=== PATIENT | male | born 1980 | race Caucasian/White ===

== ENCOUNTER 2018-06-15 12:50 | Observation (INO) ==
--- NOTE | 2018-06-15 13:09 | ERNOTE ---
Abdominal HPI - Narrative Date of Service: 06/15/18 - General Chief Complaint: Abdominal Pain Time Seen by Provider: 06/15/18 13:08 Source: patient Exam Limitations: no limitations - Immun/Allergies/Home Medications Immunizatons: IMMUNIZATION HX Immunizations Up to Date Yes History of Influenza Vaccine No Hx Pneumococcal Vaccination No Allergies/Adverse Reactions: Allergies No Known Allergies Allergy (Verified 11/28/17 13:48) Home Medications: HOME MEDICATIONS Cetirizine HCl [Zyrtec] 10 mg PO DAILY 06/09/13 [Last Taken Unknown] Multivitamins [Multivitamin Jessica] 1 cap PO DAILY 06/09/13 [Last Taken Unknown] cholecalciferol (vitamin D3) 5,000 unit capsule 5,000 unit PO DAILY 11/28/17 [Last Taken Unknown] omeprazole 40 mg capsule,delayed release 40 mg PO DAILY #90 cap 11/28/17 [Last Taken Unknown] vitamin B complex tablet 1 tab PO DAILY 11/28/17 [Last Taken Unknown] - Pain Score Pain Score #1 Pain Score: 7 Abdominal Pain Onset Location: RLQ Pain Radiation: no radiation - History of Present Illness Narrative: The patient is a 38 year old male who presents for RLQ abdominal pain which has been present since yesterday evening. There are associated symptoms of nausea with vomiting, chills and fatigue. The patient reports RLQ pain, 7/10. There are no alleviating factors. There are aggravating factors of activity. Previous treatments have included: none. The past medical history includes: GERD and HLD. The social history is positive for current tobacco use. The patient has had no ill contacts. Patient states pain began to RLQ with radiation to right flank yesterday, today pain localized to RLQ. Patient reports nausea with vomiting that began this am, patient denies blood in emesis. Patient reports normal BM this am without containing blood. Review of Systems - Review of Systems Constitutional: Present: fever, chills, fatigue EYE: Present: no symptoms reported ENT: Present: no symptoms reported. Absent: ear pain, nasal drainage, sore throat Respiratory: Present: no symptoms reported. Absent: shortness of breath, cough Cardiology: Present: no symptoms reported. Absent: chest pain Gastrointestinal/Abdominal: Present: nausea, vomiting, abdominal pain, eating less, drinking less. Absent: diarrhea Genitourinary: Present: no symptoms reported, other - denies scrotal pain. Absent: frequency, dysuria, hematuria, decreased urinary output Musculoskeletal: Present: no symptoms reported. Absent: back pain Skin: Present: no symptoms reported. 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 Recheck 3-5 yrs. History of esophagogastroduodenoscopy (EGD) Onset Date: 2013 neg clotest. Mod chemical irritation Family History: Family History (Updated 11/13/17 @ 12:35 by Samantha Perry RN) Mother Hypertension Grandfather Diabetes Grandmother Diabetes Father , age 48 Lymphoma Uncle Diabetes Aunt Diabetes Social History: Preferred Language Citizen Of [place] Do you have any jainism or No cultural preference? Smoking Status Current every day smoker Have you smoked in the past 12 No months Do you dip or chew tobacco Yes Abuse History No History of abuse Psych History No pertinent hx Alcohol Use occasionally Drug Use none (Last Updated 12/17/17 @ 16:39 by Orlando Mora DO) No Social History Section defined Physical Exam - Physical Exam General Appearance: Present: wd/wn, alert, moderate distress Head Exam: Present: normal inspection Eye Exam: Normal inspection: bilateral Ears, Nose, Throat: Present: normal ENT inspection, normal pharynx Neck: Present: normal inspection Respiratory: Present: no respiratory distress, normal breath sounds, no accessory muscle use, lungs clear Cardiovascular/Chest: Present: no murmur, tachycardia Gastrointestinal/Abdominal: Present: normal bowel sounds, nondistended, soft, no organomegaly, tenderness - RLQ, guarding, rebound, McBurney sign, Obturator sign, Psoas sign. Absent: De Souza sign, mass Extremity Exam: Present: no edema Neurological Exam: Present: alert, oriented, normal mood/affect Skin Exam: Present: normal color, warm/dry Progress - Date and Time Seen: Date and Time: 06/15/18 16:20 Discussed case with , will present to evaluate patient, does not want OR crew notified at this time. 06/15/18 16:40 present to evaluate patient. 06/15/18 16:57 Plan for patient to go to OR. - Results and Orders Patient's Lab Results:: I have reviewed the patient's lab results. - Vital Signs Patient's Vital Signs:: I have reviewed the patient's vital signs. Vital Signs: Vital Signs 06/15/18 13:02 Temperature 37.6 C Pulse Rate 125 H Respiratory Rate 18 Blood Pressure 128/48 O2 Sat by Pulse Oximetry 100 - X-Ray X-Ray #1 X-Ray: abdomen Interpretation: Reviewed by me X-ray Comments: Normal bowel gas pattern, mild retained stool. - CT/Ultrasound CT/Ultrasound Narrative: IMPRESSION: 1. ACUTE APPENDICITIS. 2. NONSPECIFIC HEPATOMEGALY WITH FATTY INFILTRATION OF THE LIVER. FINDINGS TELEPHONED TO THE EMERGENCY ROOM PERSONNEL AT 1615 HOURS. Electronically signed by Hal Ceballos M.D. - Progress/Reassessment Chief Complaint: Abdominal Pain Departure Clinical Impression: Appendicitis, acute Qualifiers: Acute appendicitis type: with localized peritonitis Appendicitis gangrene presence: without gangrene Appendicitis perforation presence: without perforation Appendicitis abscess presence: without abscess Qualified Code(s): K35.30 - Acute appendicitis with localized peritonitis, without perforation or gangrene - Departure Disposition: Still a patient Condition: Good
[2018-06-15] MEDS ORDERED: ONDANSETRON HCL/PF 2 MG/ML VIAL IV ONE (13:13)
[2018-06-15] MEDS ORDERED: KETOROLAC TROMETHAMINE 30 MG/ML VIAL IV ONE (13:13)
[2018-06-15] MEDS ORDERED: NORMAL SALINE 500 ML IV ONE (13:14)
[2018-06-15 13:34] LABS: Hematocrit 44.3 % (42.0-52.0); Hemoglobin 15.2 gm/dL (13.5-18.0); Mean Cell Volume 87.2 fl (78-100); Mean Corpuscular Hemoglobin 29.9 pg (27-31); Mean Corpuscular Hgb Conc 34.3 g/dl (32-36); Mean Platelet Volume 9.5 fl (8-11.3); Neutrophil # 14.6 K/mm3 (1.3-6.0); Neutrophil % 93.5 % (42-75.0); Platelet Count 266 K/mm3 (150-450); Red Blood Count 5.08 M/mm3 (4.7-6.0); Red Cell Distribution Width 12.9 % (11.5-14.0); White Blood Count 15.6 K/mm3 (4.0-10.5)
[2018-06-15] MEDS ORDERED: DIATRIZOATE MEGLUMINE, SODIUM 30 ML BTL PO ONE (13:41)
[2018-06-15] MEDS ORDERED: MORPHINE SULFATE 4 MG/ML SYRG ONE (13:56)
[2018-06-15] MEDS ORDERED: MORPHINE SULFATE 4 MG/ML SYRG IV ONE (13:56)
[2018-06-15 13:57] LABS: Albumin * 4.5 gm/dl (3.4-5.0); Anion Gap 18.5 mmol/L (6.8-13.8); BUN/Creatinine Ratio 15.3 (9.0-21.6); Bilirubin, Total 0.7 mg/dL (0.0-1.1); Ca. Corrected For Albumin 8.9 mg/dL (8.4-10.2); Calcium * 9.6 mg/dL (7.9-10.9); Carbon Dioxide 24.6 mmol/L (24-32.6); Potassium 4.1 mmol/L (3.4-4.6); Total Protein 8.1 gm/dL (6.2-8.2)
[2018-06-15] MEDS ORDERED: CEFEPIME HCL 1 GM/100 ML BAG IV ONE (16:49)
--- NOTE | 2018-06-15 16:58 | ANES ---
Anesthesia Pre Procedure Eval Vitals/Labs: Last Vital Signs Temp 37.2 C 06/15/18 14:34 Pulse 100 06/15/18 14:34 Resp 14 06/15/18 14:34 BP 145/87 H 06/15/18 14:34 Pulse Ox 95 06/15/18 14:34 HOME MEDICATIONS Cetirizine HCl [Zyrtec] 10 mg PO DAILY 06/09/13 [Last Taken Unknown] Multivitamins [Multivitamin Jessica] 1 cap PO DAILY 06/09/13 [Last Taken Unknown] cholecalciferol (vitamin D3) 5,000 unit capsule 5,000 unit PO DAILY 11/28/17 [Last Taken Unknown] omeprazole 40 mg capsule,delayed release 40 mg PO DAILY #90 cap 11/28/17 [Last Taken Unknown] vitamin B complex tablet 1 tab PO DAILY 11/28/17 [Last Taken Unknown] Allergies/Adverse Reactions: Allergies Allergy/AdvReac Type Severity Reaction Status Date / Time No Known Allergies Allergy Verified 11/28/17 13:48 - Planned Procedure Planned Procedure: RLQ pain/vomiting Medication List Reviewed:: Yes Allergies Verified: Yes Medical History (Updated 06/15/18 @ 16:47 by ZITA Cazares) GERD (gastroesophageal reflux disease) Onset Date: Unknown Hematuria Onset Date: Unknown Influenza vaccination declined Onset Date: ~11/28/17 Tobacco abuse Onset Date: Unknown [place] teeth removed Onset Date: 2005 hyperlipidemia Onset Date: Unknown Surgical History (Updated 11/13/17 @ 12:28 by Samantha Perry RN) 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 Recheck 3-5 yrs. History of esophagogastroduodenoscopy (EGD) Onset Date: 2013 neg clotest. Mod chemical irritation Family History (Updated 11/13/17 @ 12:35 by Samantha Perry RN) Mother Hypertension Grandfather Diabetes Grandmother Diabetes Father , age 48 Lymphoma Uncle Diabetes Aunt Diabetes - Family Anesthesia History Family History:: no untoward family reactions to anesthesia, no familial bleeding tendencies, no family history of clotting disorders, no family history of premature - Airway/Neck/Teeth Within Normal Limits:: Yes Teeth Condition: intact Mallampatti Score: 3 Thyromental (T-M) distance: > 6 cm Mandibulo Hyoid distance: > 3 cm - Respiratory Respiratory Physical: lungs clear Smoking Status: Light tobacco smoker - chews 1-2 cans per day Discussed smoking cessation including day of surgery: Yes - one this am Sleep Apnea currently treated: No Sleep Apnea by current assessment: Yes - possible by anatomy Discussed Risks/Treatment of JOSSELINE: No - Cardiovascular Tolerate Activity: Fair Heart Sounds: S1 & S2, Regular - Anesthesia Assessment and Plan ASA Class: PS, II, E Anesthesia Type Plan: General ET
--- NOTE | 2018-06-15 17:02 | HP ---
Chief Complaint - Chief Complaint Date of Service: 06/15/18 Time of Service: 16:56 Chief Complaint: acute appy History of Present Illness: Nitish is a pleasant 38 year old male, who developed abdominal pain yesterday. This has worsened and he has had N/V. He has not had pain like this before and is generally healthy. He works for the [employer]. Medical History (Updated 06/15/18 @ 16:47 by ZITA Cazares) GERD (gastroesophageal reflux disease) Onset Date: Unknown Hematuria Onset Date: Unknown Influenza vaccination declined Onset Date: ~11/28/17 Tobacco abuse Onset Date: Unknown [place] teeth removed Onset Date: 2005 hyperlipidemia Onset Date: Unknown Surgical History: Surgical History (Updated 11/13/17 @ 12:28 by Samantha Perry RN) History of colonoscopy Onset Date: 2013. juvenile adenoma. Recheck 3-5 yrs. History of esophagogastroduodenoscopy (EGD) Onset Date: 2013 neg clotest. Mod chemical irritation Family History: Family History (Updated 11/13/17 @ 12:35 by Samantha Perry RN) Mother Hypertension Grandfather Diabetes Grandmother Diabetes Father , age 48 Lymphoma Uncle Diabetes Aunt Diabetes Social History: Preferred Language [place] Do you have any christian or No cultural preference? Smoking Status Current every day smoker Have you smoked in the past 12 No months Do you dip or chew tobacco Yes Abuse History No History of abuse Psych History No pertinent hx Alcohol Use occasionally Drug Use none (Last Updated 12/17/17 @ 16:39 by Orlando Mora DO) No Social History Section defined Review Of Systems (GEN) - Review of Systems Generalized/Overall Review: Present: No Symptoms Reported EENTM: Present: No Symptoms Reported Respiratory: Present: No Symptoms Reported Cardiac: Present: No Symptoms Reported Abdominal: Present: No Symptoms Reported Genitourinary: Present: No Symptoms Reported Musculoskeletal: Present: No Symptoms Reported Neurological: Present: No Symptoms Reported Skin: Present: No Symptoms Reported Endocrine: Present: No Symptoms Reported Immunizations: IMMUNIZATION HX Immunizations Up to Date Yes History of Influenza Vaccine No Hx Pneumococcal Vaccination No Allergies/Adverse Reactions: Allergies Allergy/AdvReac Type Severity Reaction Status Date / Time No Known Allergies Allergy Verified 11/28/17 13:48 Home Medications: HOME MEDICATIONS Cetirizine HCl [Zyrtec] 10 mg PO DAILY 06/09/13 [Last Taken Unknown] Multivitamins [Multivitamin Jessica] 1 cap PO DAILY 06/09/13 [Last Taken Unknown] cholecalciferol (vitamin D3) 5,000 unit capsule 5,000 unit PO DAILY 11/28/17 [Last Taken Unknown] omeprazole 40 mg capsule,delayed release 40 mg PO DAILY #90 cap 11/28/17 [Last Taken Unknown] vitamin B complex tablet 1 tab PO DAILY 11/28/17 [Last Taken Unknown] Exam - Exam Vital Signs: Vital Signs - Last Taken Temp 37.2 C 06/15/18 14:34 Pulse 100 06/15/18 14:34 Resp 14 06/15/18 14:34 BP 145/87 H 06/15/18 14:34 Pulse Ox 95 06/15/18 14:34 Constitutional: Present: Alert, Oriented x3 Neck: Present: full range of motion Back Exam: Present: normal inspection Respiratory: Present: lungs clear, normal breath sounds Cardiovascular/Chest: Present: regular rate, rhythm Abdomen: Present: Normal bowel sounds, tender /Rectal: Present: Exam deferred Extremity: Present: normal range of motion Skin Exam: Present: normal color Neurologic: Present: sales assistant entertainment and media II-XII nml as tested Appearance: Present: appropriate appearance Eye contact: Present: cooperative, good eye contact Thoughts: Present: normal thought pattern Diagnostic Studies: Abnormal Lab Results 06/15/18 06/15/18 Range/Units 13:28 13:28 WBC 15.6 H (4.0-10.5) K/mm3 Immature Gran # (Auto) 0.05 H (0.000-0.0310) K/mm3 Neutrophils % 93.5 H (42-75.0) % Lymphocytes % 4.4 L (20-51) % Neutrophils # 14.6 H (1.3-6.0) K/mm3 Lymphocytes # 0.69 L (1.5-3.5) k/mm3 Anion Gap 18.5 H (6.8-13.8) mmol/L Random Glucose 111 H (70-110) mg/dL Laboratory Results WBC 15.6 K/mm3 (4.0-10.5) H 06/15/18 13:28 RBC 5.08 M/mm3 (4.7-6.0) 06/15/18 13:28 Hgb 15.2 gm/dL (13.5-18.0) 06/15/18 13:28 Hct 44.3 % (42.0-52.0) 06/15/18 13:28 MCV 87.2 fl (78-100) 06/15/18 13:28 MCH 29.9 pg (27-31) 06/15/18 13:28 MCHC 34.3 g/dl (32-36) 06/15/18 13:28 RDW 12.9 % (11.5-14.0) 06/15/18 13:28 Plt Count 266 K/mm3 (150-450) 06/15/18 13:28 MPV 9.5 fl (8-11.3) 06/15/18 13:28 Immature Gran % (Auto) 0.30 % (0.001-0.429) 06/15/18 13:28 Immature Gran # (Auto) 0.05 K/mm3 (0.000-0.0310) H 06/15/18 13:28 93.5 % (42-75.0) H 06/15/18 13:28 4.4 % (20-51) L 06/15/18 13:28 1.5 % (0.0-9) 06/15/18 13:28 0.1 % (0.0-3.0) 06/15/18 13:28 0.2 % (0.0-1.0) 06/15/18 13:28 Nucleated RBC % 0.0 k/mm3 (0-1) 06/15/18 13:28 14.6 K/mm3 (1.3-6.0) H 06/15/18 13:28 0.69 k/mm3 (1.5-3.5) L 06/15/18 13:28 0.2 k/mm3 (0.0-1.0) 06/15/18 13:28 0.0 k/mm3 (0.0-0.7) 06/15/18 13:28 Absolute Basophils 0.0 k/mm3 (0.0-0.1) 06/15/18 13:28 Sodium 140 mmol/L (132-142) 06/15/18 13:28 140 mmol/L (130-142) 06/15/18 13:28 Potassium 4.1 mmol/L (3.4-4.6) 06/15/18 13:28 Chloride 101 mmol/L (97-106) 06/15/18 13:28 Carbon Dioxide 24.6 mmol/L (24-32.6) 06/15/18 13:28 18.5 mmol/L (6.8-13.8) H 06/15/18 13:28 BUN 17 mg/dL (6-23) 06/15/18 13:28 1.11 mg/dL (0.4-1.4) 06/15/18 13:28 Est GFR (Non-Af Amer) 79 mL/min (60-130) 06/15/18 13:28 15.3 (9.0-21.6) 06/15/18 13:28 111 mg/dL (70-110) H 06/15/18 13:28 Calcium 9.6 mg/dL (7.9-10.9) 06/15/18 13:28 Calcium Adj for Albumin 8.9 mg/dL (8.4-10.2) 06/15/18 13:28 0.7 mg/dL (0.0-1.1) 06/15/18 13:28 AST 31 U/L (0-48) 06/15/18 13:28 ALT 67 U/L (19-67) 06/15/18 13:28 109 U/L (50-170) 06/15/18 13:28 8.1 gm/dL (6.2-8.2) 06/15/18 13:28 4.5 gm/dl (3.4-5.0) 06/15/18 13:28 Amylase 46 U/L (25-115) 06/15/18 13:28 97 U/L (73-393) 06/15/18 13:28 Assessment/Plan - Assessment/Plan (1) Appendicitis, acute Problem: Acute Qualifiers: Acute appendicitis type: with localized peritonitis Appendicitis gangrene presence: without gangrene Appendicitis perforation presence: without perforation Appendicitis abscess presence: without abscess Qualified Code(s): K35.30 - Acute appendicitis with localized peritonitis, without perforation or gangrene Plan - Plan Plan: We will plan to go to the OR for lap possible open appendectomy. Risks and benefits were discussed with the patient. He voices understanding and would like to proceed. Antibiotics were given in the ER.
[2018-06-15 17:19] LABS: Urine Appearance Clear (CLEAR); Urine Bilirubin Negative (NEGATIVE); Urine Color Yellow
[2018-06-15 17:20] LABS: Urine Bacteria None Seen; Urine Blood 5 /ul (NEGATIVE); Urine Ketone Negative (NEGATIVE); Urine Nitrite Negative (NEGATIVE); Urine Protein Negative (NEGATIVE); Urine RBC 0-5 /hpf (0-5); Urine Specific Gravity 1.005 SP.GR. (1.005-1.030); Urine Urobilinogen Normal (NORMAL); Urine WBC 0-5 /hpf (0-5)
[2018-06-15] MEDS ORDERED: BUPIVACAINE HCL 50 ML VIAL IJ ONE (17:55)
--- NOTE | 2018-06-15 18:52 | ANES ---
Post Anesthesia Discharge - Transfer of Care Transfer of Care handoff given to nurse: Yes - Discharge from PACU Discharge from PACU when meets criteria: Yes - Awake in PACU.
[2018-06-15] MEDS ORDERED: HYDROcodone/ACETAMINOPHEN 1 EACH TABLET PO PRN (18:54)
[2018-06-15] MEDS ORDERED: ONDANSETRON HCL/PF 2 MG/ML VIAL IV PRN (18:54)
[2018-06-15] MEDS ORDERED: ACETAMINOPHEN 325 MG TABLET PO PRN (18:54)
[2018-06-15] MEDS ORDERED: IBUPROFEN 800 MG TABLET PO PRN (18:54)
--- NOTE | 2018-06-15 19:10 | ANES ---
Post Anesthesia Assessment - Vital Signs Vitals: Last Vital Signs Temp 37.6 C 06/15/18 18:50 Pulse 105 H 06/15/18 19:05 Resp 22 H 06/15/18 19:05 BP 133/67 06/15/18 19:05 Pulse Ox 91 L 06/15/18 19:05 Airway Patency: Normal - Mental Status Level Of Consciousness: Awake, Alert, Appropriate - Pain Level Pain Score: 0 - N/V Assessment Nausea/Vomiting Presence: None Dehydration:: No - Additional Notes Comments:: Discussed JOSSELINE and suggested sleep study as there were many indications of this condition perioperatively.
[2018-06-15] MEDS ORDERED: RINGER'S SOLUTION,LACTATED 1,000 ML IV PRN (19:29)
[2018-06-15] MEDS: POTASSIUM CHLORIDE 20 MEQ in DEXTROSE 5%-0.5 NORMAL SALINE 990 ML IV SCH (22:26)
[2018-06-16] MEDS: POTASSIUM CHLORIDE 20 MEQ in DEXTROSE 5%-0.5 NORMAL SALINE 990 ML IV SCH (08:40)
--- NOTE | 2018-06-16 11:11 | DS ---
(1) Appendicitis, acute Problem: Acute Qualifiers: Acute appendicitis type: with localized peritonitis Appendicitis gangrene presence: without gangrene Appendicitis perforation presence: without perforation Appendicitis abscess presence: without abscess Qualified Code(s): K35.30 - Acute appendicitis with localized peritonitis, without perforation or gangrene Description of Stay: Ntiish is a pleasant 38 yo male who came in through the ER with appendicitis. He was taken to the OR for lap appy, which was uneventful. He is recovering well. He feels ready for dc home. Procedures Performed: see notes below List Procedures: lap appy Results and Findings: Lab Pending Results 06/15/18 13:28: WBC 15.6 H, RBC 5.08, Hgb 15.2, Hct 44.3, MCV 87.2, MCH 29.9, MCHC 34.3, RDW 12.9, Plt Count 266, MPV 9.5, Immature Gran % (Auto) 0.30, Immature Gran # (Auto) 0.05 H, Neutrophils % 93.5 H, Lymphocytes % 4.4 L, Monocytes % 1.5, Eosinophils % 0.1, Basophils % 0.2, Nucleated RBC % 0.0, Neutrophils # 14.6 H, Lymphocytes # 0.69 L, Monocytes # 0.2, Eosinophils # 0.0, Absolute Basophils 0.0 06/15/18 13:28: Sodium 140, Plasma Sodium 140, Potassium 4.1, Chloride 101, Carbon Dioxide 24.6, Anion Gap 18.5 H, BUN 17, Creatinine 1.11, Est GFR (Non-Af Amer) 79, BUN/Creatinine Ratio 15.3, Random Glucose 111 H, Calcium 9.6, Calcium Adj for Albumin 8.9, Total Bilirubin 0.7, AST 31, ALT 67, Alkaline Phosphatase 109, Total Protein 8.1, Albumin 4.5, Amylase 46, Lipase 97 06/15/18 16:48: Urine Color Yellow, Urine Appearance Clear, Urine pH 6.0, Ur Specific [place] 1.005, Urine Protein Negative, Urine Glucose (UA) Negative, Urine Ketones Negative, Urine Blood 5 H, Urine Nitrate Negative, Urine Bilirubin Negative, Urine Urobilinogen Normal, Ur Leukocyte Esterase Negative, Urine RBC 0-5, Urine WBC 0-5, Ur Epithelial Cells None seen, Urine Bacteria None seen, Urine Culture Comments No culture indicated Discharge Location: Home Disposition: Home self-care Condition: Good Face to Face Encounter completed per [facility] Guidelines: No Discharge Activity: Activity as tolerated Discharge Diet: General/regular food Referrals: Orlando Mora DO [Primary Care Provider] - Complete Home Medications List: Complete Home Medication List: Cetirizine HCl [Zyrtec] 10 mg PO DAILY 06/09/13 Multivitamins [Multivitamin Jessica] 1 cap PO DAILY 06/09/13 cholecalciferol (vitamin D3) 5,000 unit capsule 5,000 unit PO DAILY 11/28/17 omeprazole 40 mg capsule,delayed release 40 mg PO DAILY #90 cap 11/28/17 vitamin B complex tablet 1 tab PO DAILY 11/28/17 Acetaminophen [Tylenol] 650 mg PO Q6H PRN tab 06/16/18 HYDROcodone/ACETAMINOPHEN [[place] 5-325] 2 ea PO Q6H PRN tab 06/16/18 Ibuprofen [Motrin] 800 mg PO Q6H PRN tab 06/16/18
[2018-06-16 11:51] VITALS: BP 130/78
--- NOTE | 2018-06-17 10:09 | OR ---
Operative Report - Dictated Report Narrative: Date of Service: 06/15/18 Procedure: laparoscopic appendectomy Pre-procedure diagnosis: acute appendicitis Post-procedure diagnosis: same Surgeon: Dr. Lisbeth Fowler Anesthesia: general Indication for procedure: Nitish is a pleasant 38 year old male who was found to have acute appendicitis. Description of procedure: After appropriate informed consent was obtained patient was taken to the operating room, placed in the supine position. General anesthesia was achieved. The RN placed a Green catheter. The patient was prepped and draped in the usual sterile fashion. A 5 mm periumbilical incision was made, hemostat was used to dissect down to the fascia. A Veress needle was inserted, a saline drop test was performed which was satisfactory. The abdomen was insufflated to 15 mmHg. A 5mm blunt trocar was placed at the umbilicus. The camera was inserted, there was no evidence of a trocar injury. A 12 mm trocar was placed in the left lower quadrant of the abdomen. A 5 mm trocar was placed in the suprapubic region. The patient was placed in a head down, rotated left position, to facilitate exposure. The appendix was identified, it appeared consistent with acute appendicitis. A window was made in the mesoappendix. The 45 mm echelon stapler with the white load was placed across the base of the appendix. There was good hemostasis. The echelon 45 mm stapler with a khalil load was then placed across the mesoappendix. There was good hemostasis. The appendix was removed through an Endo Catch bag. The abdomen was inspected and the staple lines were intact, with good hemostasis. The remainder of the abdomen was inspected and was satisfactory. The 12 mm trocar site was closed with an 0 Vicryl suture using a PMI device. The abdomen was desufflated. Local anesthetic was injected. The incisions were closed with inverted interrupted 4- 0 Monocryl sutures. Mastisol and Steri-Strips were applied. The patient tolerated the procedure well and was transported to the PACU in satisfactory condition. Estimated blood loss: minimal Complications: none Specimens to pathology: appendix Disposition: The patient will be admitted to the floor for observation.
== END 2018-06-16 11:51 | disposition home or self-care (01) ==
LOC: ER 12:50 → AMB 16:48 → MS 16:48 → AMB 17:31
PROVIDERS: ADMIT Surgery; ATTEND Surgery
DX: K35.30 Acute appendicitis with localized peritonitis, without perforation or gangrene
CPT/HCPCS: 36415; 74019; 74020; 74177; 80053; 81001; 82150; 83690; 85025; 88304; 96361; 96374; 99285; G0378; J2405; Q9967